=== PATIENT | female | born 1980 | race Caucasian/White ===

== ENCOUNTER 2017-05-10 15:20 | Emergency (ER) | payer MEDICAID, OTHER ==
[~2017-05-10 15:20] MED LIST: CYCL5TAB PO; TYLE3 PO; Z.0.NO CURRENT MEDS
[2017-05-10 15:25] VITALS: BP 155/94; PULSE 75; RESP 16; TEMP 98.5; O2SAT 100
--- NOTE | 2017-05-10 15:54 | RADRPT ---
EXAM DATE/TIME: 05/10/2017 15:43 [place] COMPARISON: No previous studies available for comparison. INDICATIONS : Chest pain. MEDICAL HISTORY : Smoker. SURGICAL HISTORY : Hysterectomy. ENCOUNTER: Initial ACUITY: 1 week PAIN SCORE: 10/10 LOCATION: Bilateral chest FINDINGS: PA and lateral views of the chest demonstrate the lungs to be symmetrically aerated without evidence of mass, infiltrate or effusion. The cardiomediastinal contours are unremarkable. Osseous structure s are intact. CONCLUSION: No acute disease. Maximus Gonázles MD on May 10, 2017 at 15:52 Board Certified Radiologist. This report was verified electronically.
[2017-05-10 17:19] LABS: AUTOMATED NEUTROPHIL # 8.4 TH/MM3 (1.8-7.7); BASOPHIL # 0.1 TH/MM3 (0-0.2); BASOPHIL % 0.5 % (0.0-2.0); EOSINOPHIL # 0.1 TH/MM3 (0-0.4); HEMATOCRIT 37.4 % (35.0-46.0); HEMOGLOBIN 13.2 GM/DL (11.6-15.3); LYMPH % 26.4 % (9.0-44.0); LYMPHOCYTE # 3.3 TH/MM3 (1.0-4.8); MEAN CELL VOLUME 99.2 FL (80.0-100.0); MEAN CORPUSCULAR HEMOGLOBIN 35.1 PG (27.0-34.0); MEAN CORPUSCULAR HGB CONC 35.4 % (32.0-36.0); MEAN PLATELET VOLUME 8.1 FL (7.0-11.0); MONO % 5.4 % (0.0-8.0); MONOCYTE # 0.7 TH/MM3 (0-0.9); NEUT % 66.7 % (16.0-70.0); PLATELET COUNT 279 TH/MM3 (150-450); RED BLOOD COUNT 3.77 MIL/MM3 (4.00-5.30); RED CELL DISTRIBUTION WIDTH 13.3 % (11.6-17.2); WHITE BLOOD COUNT 12.6 TH/MM3 (4.0-11.0)
[2017-05-10 17:31] LABS: ALBUMIN 4.3 GM/DL (3.4-5.0); ALT (GPT) 38 U/L (10-53); AST (GOT) 17 U/L (15-37); BICARBONATE 23.3 MEQ/L (21.0-32.0); BLOOD UREA NITROGEN 9 MG/DL (7-18); CALCIUM 9.8 MG/DL (8.5-10.1); CHLORIDE 106 MEQ/L (98-107); CREATININE 0.71 MG/DL (0.50-1.00); GLOMERULAR FILTRATION RATE 92 ML/MIN (>89); GLUCOSE,RANDOM 87 MG/DL (74-106); MAGNESIUM 2.2 MG/DL (1.5-2.5); SODIUM (NA) 138 MEQ/L (136-145)
[2017-05-10 17:33] LABS: D-DIMER 0.26 MG/L FEU (0.00-0.50); PROTHROMBIN TIME - PATIENT 9.9 SEC (9.8-11.6)
[2017-05-10] MEDS ORDERED: LORA0.5T PO (17:38)
[2017-05-10 17:41] LABS: ALKALINE PHOSPHATASE 51 U/L (45-117); TOTAL BILIRUBIN ADULT 0.3 MG/DL (0.2-1.0); TOTAL PROTEIN 8.1 GM/DL (6.4-8.2); TROPONIN I LESS THAN 0.02 NG/ML (0.02-0.05)
[2017-05-10] MEDS ORDERED: RANI150T PO (18:04)
--- NOTE | 2017-05-10 18:04 | PD ---
HPI Chief Complaint: Medical Clearance Time Seen by Provider: 17:32 Travel History International Travel<30 days: No Contact w/Intl Traveler<30days: No Traveled to known affect area: No History of Present Illness HPI 37-year-old woman who presents to the emergency department complaining of chest pain. States that she has had intermittent chest pain to [place] chest radiating to her back. Symptoms start first thing in the morning. They are also worse when she is not doing anything, and improved with distraction. She apparently has been seen in the ER 3 times in [place]. She has had extensive workup there including an echocardiogram for heart murmur, EKG, and test on her lungs. I do not believe she has had a stress test. She reports that she was diagnosed with anxiety given a prescription for Lorazepam. She otherwise has been feeling generally well and healthy. She has never had previous similar symptoms. She endorses tobacco use and occasional marijuana. No cocaine or methamphetamines or IV drugs. No other complaints. History Past Medical History Medical History: Denies Significant Hx LMP: 04/21/17 Menopausal: No : 2 Para: 2 Dilation and Curettage (D&C): Yes Social History Alcohol Use: Yes (6PK BEER DAILY) Tobacco Use: Yes (5 CIGARETTES DAILY) Allergies-Medications (Allergen,Severity, Reaction): Uncoded Allergies: CALAMARI (Allergy, Severe, HIVES, 08/12/10) Reported Meds & Prescriptions Reported Meds & Active Scripts Active Reported Lorazepam 0.5 Mg Tab 0.5 Mg PO DAILY PRN Review of Systems Except as stated in HPI: all other systems reviewed are Neg Physical Exam Narrative GENERAL: Well-appearing 37-year-old woman, no acute distress. SKIN: Focused skin assessment warm/dry. HEAD: Atraumatic. Normocephalic. EYES: Pupils equal and round. No scleral icterus. No injection or drainage. ENT: No nasal bleeding or discharge. Mucous membranes pink and moist. NECK: Trachea midline. No JVD. CARDIOVASCULAR: Regular rate and rhythm. No murmur appreciated. RESPIRATORY: No accessory muscle use. Clear to auscultation. Breath sounds equal bilaterally. GASTROINTESTINAL: Abdomen soft, non-tender, nondistended. Hepatic and splenic margins not palpable. MUSCULOSKELETAL: No obvious deformities. No clubbing. No cyanosis. No edema. NEUROLOGICAL: Awake and alert. No obvious cranial nerve deficits. Motor grossly within normal limits. Normal speech. PSYCHIATRIC: Appropriate mood and affect; insight and judgment normal. Data Data Last Documented VS Vital Signs Date Time Temp Pulse Resp B/P (MAP) Pulse Ox O2 Delivery O2 Flow Rate FiO2 05/10/17 15:25 98.5 75 16 155/94 (114) 100 Orders Orders Electrocardiogram (05/10/17 15:30) B-Type Natriuretic Peptide (05/10/17 15:30) Ckmb (Isoenzyme) Profile (05/10/17 15:30) Complete Blood Count With Diff (05/10/17 15:30) Comprehensive Metabolic Panel (05/10/17 15:30) D-Dimer (05/10/17 15:30) Magnesium (Mg) (05/10/17 15:30) Prothrombin Time / Inr (Pt) (05/10/17 15:30) Act Partial Throm Time (Ptt) (05/10/17 15:30) Troponin I (05/10/17 15:30) Lipase (05/10/17 15:30) Chest, Pa & Lat (05/10/17 15:30) Thyroid Stimulating Hormone (05/10/17 15:30) Labs Laboratory Tests Test 05/10/17 16:44 White Blood Count 12.6 TH/MM3 Red Blood Count 3.77 MIL/MM3 Hemoglobin 13.2 GM/DL Hematocrit 37.4 % Mean Corpuscular Volume 99.2 FL Mean Corpuscular Hemoglobin 35.1 PG Mean Corpuscular Hemoglobin Concent 35.4 % Red Cell Distribution Width 13.3 % Platelet Count 279 TH/MM3 Mean Platelet Volume 8.1 FL Neutrophils (%) (Auto) 66.7 % Lymphocytes (%) (Auto) 26.4 % Monocytes (%) (Auto) 5.4 % Eosinophils (%) (Auto) 1.0 % Basophils (%) (Auto) 0.5 % Neutrophils # (Auto) 8.4 TH/MM3 Lymphocytes # (Auto) 3.3 TH/MM3 Monocytes # (Auto) 0.7 TH/MM3 Eosinophils # (Auto) 0.1 TH/MM3 Basophils # (Auto) 0.1 TH/MM3 CBC Comment DIFF FINAL Differential Comment Prothrombin Time 9.9 SEC Prothromb Time International Ratio 1.0 RATIO Activated Partial Thromboplast Time 28.9 SEC D-Dimer Quantitative (PE/DVT) 0.26 MG/L FEU Blood Urea Nitrogen 9 MG/DL Creatinine 0.71 MG/DL Random Glucose 87 MG/DL Total Protein 8.1 GM/DL Albumin 4.3 GM/DL Calcium Level 9.8 MG/DL Magnesium Level 2.2 MG/DL Alkaline Phosphatase 51 U/L Aspartate Amino Transf (AST/SGOT) 17 U/L Alanine Aminotransferase (ALT/SGPT) 38 U/L Total Bilirubin 0.3 MG/DL Sodium Level 138 MEQ/L Potassium Level 3.7 MEQ/L Chloride Level 106 MEQ/L Carbon Dioxide Level 23.3 MEQ/L Anion Gap 9 MEQ/L Estimat Glomerular Filtration Rate 92 ML/MIN Total Creatine Kinase 97 U/L Troponin I LESS THAN 0.02 NG/ML B-Type Natriuretic Peptide 16 PG/ML Lipase 172 U/L Thyroid Stimulating Hormone 3rd Gen 1.760 uIU/ML [facility] Medical Decision Making Medical Screen Exam Complete: Yes Emergency Medical Condition: Yes Interpretation(s) My review of EKG: Normal sinus rhythm at a rate of 71, normal axis, normal intervals, no acute ischemia. LABS: CBC generally unremarkable. Mild elevated white count. CMP is unremarkable. Troponins negative. BMP is normal. Lipase is normal. TSH is normal. Coags unremarkable. D-dimer 0.26 Chest x-ray negative. Differential Diagnosis Anxiety, ACS, pericarditis, PE, dissection, pneumomediastinum, other Narrative Course Medical decision making INITIAL call is a 37-year-old woman presents to the ED with chest pain. Multiple previous workups negative. Negative workup today. I think this is likely anxiety. She states she does not feel like it is, she has no new stressors, she has not had trouble in the past. She does get some nausea with it. She has a completely benign abdominal exam with no evidence of cholecystitis. Possibly mild gastritis or reflux could be contributing. She is agreeable to a trial of antacids understanding that this is of unclear benefit but potentially helpful. [place] Diagnosis Primary Impression: Chest pain Additional Instructions: Take ranitidine as prescribed. Use Lorazepam sparingly for anxiety as prescribed. Follow-up with a primary physician in 2-3 weeks for repeat evaluation. Return to the emergency department for any new or worsening symptoms. Med/Other Pt SpecificInfo: Prescription(s) given Scripts Ranitidine (Ranitidine) 150 Mg Tab 150 MG PO BID for Heartburn Management, #60 TAB 0 Refills Prov: Umesh Crowe MD 05/10/17 Disposition: 01 DISCHARGE HOME Condition: Stable Umesh Crowe MD May 10, 2017 18:04
--- NOTE | 2017-05-11 23:40 | EKG ---
Date Performed: 05/10/2017 Time Performed: 16:33:59 PTAGE: 37 years EKG: Sinus rhythm NORMAL ECG PREVIOUS TRACING : 05/10/2017 16.33 Since the previous tracing, no significant change noted DOCTOR: Migel Saldivar Interpretating Date/Time 05/12/2017 07:25:08
== END 2017-05-10 18:21 | disposition home or self-care (01) ==
LOC: NEPC 15:20
DX: R07.9 Chest pain, unspecified (principal); F41.9 Anxiety disorder, unspecified; F12.90 Cannabis use, unspecified, uncomplicated; F17.210 Nicotine dependence, cigarettes, uncomplicated; Z79.899 Other long term (current) drug therapy
CPT/HCPCS: 71046; 80053; 82550; 83690; 83735; 83880; 84443; 84484; 85025; 85379; 85610; 85730; 93005